=== PATIENT | male | born 1950 | race Caucasian/White ===

== ENCOUNTER 2024-03-11 10:52 | Inpatient (IN) | payer OTHER, MEDICARE ==
[~2024-03-11] VITALS: Ht 182.9 cm; Wt 115.8 kg
[2024-03-11] MEDS: SODIUM CHLORIDE 0.9% 1,000 ML IV ONE (11:15)
--- NOTE | 2024-03-11 11:37 | DVH ---
CHEST RADIOGRAPH Indication: HYPOTENSIVE Technique: Single frontal view of the chest was obtained Comparison: None FINDINGS: Lines and Tubes: None Lungs: No focal consolidation. Pleura: No effusion. No pneumothorax. Cardiomediastinal contours: Unremarkable Bones: No acute osseous abnormality. IMPRESSION: 1. No acute cardiopulmonary disease.
[2024-03-11 11:53] VITALS: PULSE 88; RESP 18; O2SAT 96
--- NOTE | 2024-03-11 12:00 | DVH ---
CT ABDOMEN AND PELVIS WITHOUT CONTRAST CLINICAL HISTORY: DIARRHEA, HYPOTENSIVE TECHNIQUE: Multiple contiguous axial images of the abdomen and pelvis without intravenous contrast. The images were reformatted degenerate coronal and sagittal reconstructions. All CT scans at this medical facility are performed using dose modulation techniques as appropriate t o a performed exam including the following:Automated exposure control was utilized; adjustment of the MA and/or KV according to patient size; and use of iterative reconstruction technique. Radiation Dose Information: CT Dose: CTDI volume is 23.17 mGy. Dose-length product is 1391.11 mGy*cm Comparison: None FINDINGS: Evaluation of the abdomen and pelvis is limited without intravenous contrast. There are right and left adrenal gland nodules measuring 1.9 cm and 1.8 cm respectively. The liver demonstrates decreased attenuation consistent with hepatic steatosis. There is no evidence of nephrolithiasis. There is mild bilateral hydronephrosis. There is also mild b ilateral hydroureter. There is no evidence of an obstructing calculus. There is a 4.2 cm right renal cysts. The gallbladder, pancreas, and spleen appear within normal limits. There is no gross evidence of abdominal lymphadenopathy. There is no free fluid or free air. The stomach grossly appears unremarkable. There are postsurgical changes related to near total colec ximena. There is a right lower abdomen ileostomy. There are no dilated small bowel loops. There is a broad neck midline ventral hernia with the neck measuring 6.4 cm in transverse diameter. The abdominal aorta and IVC appear within normal limits. The prostate gland is enlarged with central calcifications. The bladder demonstrates circumferential wall thickening which May relate to cystitis versus chronic outlet obstruction. There is no gross elidia dence of a pelvic mass. There is no free fluid collection. There is a small fat containing left ingui nal hernia. Lung bases are clear. There is no acute osseous abnormality. IMPRESSION: 1. There is mild bilateral hydronephrosis and hydroureter. There is no evidence of nephrolithiasis or obstructing ureteral calculus. 2. Prostatomegaly. 3. The bladder demonstrates circumferential wall thickening which May relate to cystitis versus chron ic outlet obstruction. 4. There are postsurgical changes related to near total colectomy. There is right lower abdomen ileos ximena. There is no evidence of small bowel obstruction. 5. Bilateral adrenal gland nodules likely adenomas. 6. Hepatic steatosis. 7. Broad neck midline ventral hernia. HS:Y
[2024-03-11 12:07] LABS: Urine Bacteria None Seen /hpf (None Seen)
[2024-03-11 12:27] LABS: Urine Blood 1+ /uL (Negative); Urine Clarity Ex.Turbid (Clear); Urine Color Yellow (Yellow); Urine Protein, UAD 2+ (Negative); Urine Specific Gravity 1.011 (1.001-1.035); Urine Urobilinogen Normal (Negative); Urine WBC 1876 /hpf (0 - 3); Urine WBC Clumps PRESENT /hpf (None Seen); Urine pH 5.5 (5.0-9.0)
[2024-03-11 12:27] LABS: Eosinophils # (auto) 0.1 10 ^3/uL (0-0.8); Eosinophils % (auto) 0.4 % (0.0-7.0); Monocytes # (auto) 1.3 10 ^3/uL (0-1.3)
[2024-03-11 12:29] LABS: Basophils # (auto) 0.1 10 ^3/uL (0-0.2); Basophils % (auto) 0.3 % (0.0-2.0); Hematocrit 40.9 % (41.0-53.0); Hemoglobin 13.1 g/dL (13.5-17.5); Lymphocytes # (auto) 1.9 10 ^3/uL (0.4-5.4); Lymphocytes % (auto) 8.4 % (10.0-50.0); Mean Corpuscular Volume 77.9 fL (80.0-100.0); Monocytes % (auto) 5.9 % (0.0-12.0); Neutrophils # (auto) 18.9 10 ^3/uL (1.6-8.6); Nucleated Red Blood Cells % 0.1 %; Platelet Count (auto) 294 10^3/uL (140-450); Red Blood Cells 5.25 10^6/uL (4.5-5.90); Red Cell Distribution Width 16.1 % (11.8-14.3); White Blood Cell 22.2 10^3/uL (4.4-10.8)
[2024-03-11 12:36] LABS: Chloride 101 mmol/L (98-107)
[2024-03-11 12:37] LABS: Anion Gap 15 (5-15)
--- NOTE | 2024-03-11 12:38 | ED.PDOC ---
General HPI Comments 74 y.o male with PMH of DM and HTN, presents to the ED for a chief complaint of reduced urine stream associated with diarrhea and fatigue x today . Patient reports having a colostomy bag in place s/p acute colitis diagnose, states he self catheterizes at home and noticed watery stool in his bag. Patient reports symptoms he is experiencing today are the same as previous UTI diagnoses. No fever, chills, sweats, abdominal pain, bloody stool, nausea or vomiting reported. Patient also mentions poor appetite x 2 days ago. Chief Complaint: Urinary Time Seen by MD: 11:02 Primary Care Provider: LUZ VANCE Reviewed notes: Nurses Notes, Medications, Allergies Information Source: Patient Mode of Arrival: Ambulatory Severity: Moderate Timing: Hours Duration: Since onset Onset: Spontaneous History of: UTI, Suprapubic catheter Penile discharge: None Modifying factors: None Past Medical History PAST MEDICAL HISTORY: DM, HTN, UTI'S Past Medical History (Other): Acute colitis and substance dependent Surgical History (Other): colostomy Family History Family History: Reviewed,noncontributory to illness Social History Smoker: Non-Smoker Alcohol: Denies ETOH Use Drugs: Denies Drug Use Lives In: Home Constitutional: reports: fatigue; denies: chills, diaphoresis, fever, malaise, sweats, weakness, others EENTM: denies: blurred vision, double vision, ear bleeding, ear discharge, ear drainage, ear pain, ear ringing, eye pain, eye redness, hearing loss, mouth pain, mouth swelling, nasal discharge, nose bleeding, nose congestion, nose pain, photophobia, tearing, throat pain, throat swelling, voice changes, others Respiratory: denies: cough, hemoptysis, orthopnea, SOB at rest, shortness of breath, SOB with excertion, stridor, wheezing, others Cardiovascular: denies: chest pain, dizzy spells, diaphoresis, Dyspnea on exertion, edema, irregular heart beat, left arm pain, lightheadedness, pa lpitations, PND, syncope, others Gastrointestinal: reports: diarrhea, poor appetite; denies: abdomen distended, abdominal pain, blood streaked bowels, constipated, dysphagia, difficulty swallo wing, hematemesis, melena, nausea, poor fluid intake, rectal bleeding, rectal pain, vomiting, others Genitourinary: reports: others (urinary stream decreased ); denies: burning, dysuria, flank pain, frequency, hematuria, incontinence, penile discharge, penile sore, pain, testicle pain, testicle swelling, urgency Neurological: denies: dizziness, fainting, headache, left sided numbness, left sided weakness, numbness, paresthesia, pre-existing deficit, right sided numbness, right sided weakness, seizure, speech problems, tingling, tremors, weakness, others Musculoskeletal: denies: back pain, gout, joint pain, joint swelling, muscle pain, muscle stiffness, neck pain, others Integumetry: denies: bruises, change in color, change in hair/nails, dryness, laceration, lesions, lumps, rash, wounds, others Allergic/Immunocompromised: denies: Difficulty Healing, Frequent Infections, Hives, Itching, others Hematologic/Lymphatic: denies: anemia, blood clots, easy bleeding, easy bruising, swollen glands, others Psychiatric: denies: anxiety, bipolar disorder, depression, hopeless, panic disorder, schizophrenia, sleepless, suicidal, others All Other Systems: Reviewed and Negative Physical Exam General Appearance: No Apparent Distress, Normal HEENT: Normal ENT Inspection, Pharynx Normal, TMs Normal Neck: Full Range of Motion, Non-Tender, Normal, Normal Inspection Respiratory: Chest Non-Tender, Lungs Clear, No Accessory Muscle Use, No Respiratory Distress, Normal Breath Sounds Cardiovascular: No Edema, No JVD, No Murmur, No Gallop, Normal Peripheral Pulses, Regular Rate/Rhythm Breast Exam: Deferred Gastrointestinal: Non Tender, Other (coloostomy bag filled with liquid like sto ol. ) Genitalia: Deferred Pelvic: Deferred Rectal: Deferred Extremities: No calf tenderness, Normal capillary refill, Normal inspection, Normal range of motion, Non-tender, No pedal edema Musculoskeletal : Apperance: Normal Neurologic: Alert, soft top installer II-XII nml as Tested, No Motor Deficits, Normal Affect, Normal Mood, No Sensory Deficits Cerebellar Function: Normal Reflexes: Normal Skin: Dry, Normal Color, Warm Lymphatic: No Adenopathy Was a procedure done? Was a procedure done?: No Differential Diagnosis Kidney stone (Female): Bowel obstruction, Cholelithiasis, Hepatitis, Pancreatitis, Pyelonephritis, Renal failure, Urinary obstruction, Urolithiasis, N/A Kidney stone (Male): Bowel obstruction, Cholelithiasis, Hepatitis, Cholangitis, Pancreatitis, Pyelonephritis, Renal failure, Urinary obstruction, Urolithiasis, Renal infarction, Urinary tract infection Penile/Scrotal: UTI, Urinary Retention Urinary Problem (Male): Bladder Outlet, Bladder Obstruction, Prostatitis, Plelonephritis, Renal Failure, Urinary Retention, Urolithiasis, UTI X-Ray, Labs, Meds, VS Vital Signs Date Time Temp Pulse Resp B/P (MAP) Pulse Ox O2 Delivery O2 Flow Rate FiO2 03/11/24 13:42 88 18 105/66 (79) 96 03/11/24 11:53 88 18 96 Room Air* 0 21 03/11/24 11:53 98.1 89 18 97/67 (77) 96 98.1 03/11/24 11:06 97.5 89 18 95/61 (72) 96 Lab Test 03/11/24 11:57 03/11/24 11:05 03/11/24 10:59 Range/Units White Blood Count 22.2 H 4.4-10.8 10^3/uL Red Blood Count 5.25 4.5-5.90 10^6/uL Hemoglobin 13.1 L 13.5-17.5 g/dL Hematocrit 40.9 L 41.0-53.0 % Mean Corpuscular Volume 77.9 L 80.0-100.0 fL Mean Corpuscular Hemoglobin 25.0 L 28.0-32.0 pg Mean Corpuscular Hemoglobin Concent 32.0 32.0-36.0 g/dL Red Cell Distribution Width 16.1 H 11.8-14.3 % Platelet Count 294 140-450 10^3/uL Mean Platelet Volume 8.7 6.9-10.8 fL Neutrophils (%) (Auto) 85.0 H 37.0-80.0 % Lymphocytes (%) (Auto) 8.4 L 10.0-50.0 % Monocytes (%) (Auto) 5.9 0.0-12.0 % Eosinophils (%) (Auto) 0.4 0.0-7.0 % Basophils (%) (Auto) 0.3 0.0-2.0 % Neutrophils # (Auto) 18.9 H 1.6-8.6 10 ^3/uL Lymphocytes # (Auto) 1.9 0.4-5.4 10 ^3/uL Monocytes # (Auto) 1.3 0-1.3 10 ^3/uL Eosinophils # (Auto) 0.1 0-0.8 10 ^3/uL Basophils # (Auto) 0.1 0-0.2 10 ^3/uL Nucleated Red Blood Cells 0.1 % Sodium Level 129 L 136-145 mmol/L Potassium Level 4.0 3.5-5.1 mmol/L Chloride Level 101 98-107 mmol/L Carbon Dioxide Level 13 L 20-31 mmol/L Anion Gap 15 5-15 Blood Urea Nitrogen 28 H 9-23 mg/dL Creatinine 4.06 H 0.700-1.30 mg/dL Glomerular Filtration Rate Calc 15 >90 mL/min BUN/Creatinine Ratio 6.9 L 10.0-20.0 Serum Glucose 161 H 74-106 mg/dL Calcium Level 10.0 8.7-10.4 mg/dL Troponin I High Sensitivity 8 </=54 ng/L Urine Color Yellow Yellow Urine Clarity Ex.turbid Clear Urine pH 5.5 5.0-9.0 Urine Specific [place] 1.011 1.001-1.035 Urine Protein 2+ H Negative Urine Ketones Negative Negative Urine Blood 1+ H Negative /uL Urine Nitrite Negative Negative Urine Bilirubin Negative Negative Urine Urobilinogen Normal Negative mg/dL Urine Leukocyte Esterase 3+ Negative /uL Urine RBC 13 0 - 3 /hpf Urine WBC 1876 0 - 3 /hpf Urine WBC Clumps Present None Seen /hpf Urine Squamous Epithelial Cells None seen <5 /hpf Urine Bacteria None seen None Seen /hpf Urine Glucose Normal Normal mg/dL POC Glucose 184 H 70-106 mg/dl Current Medications Medications (Trade) Dose Ordered Sig/Arnulfo Route Start Time Stop Time Status Last Admin Sodium Chloride 1,000 ml @ 1,000 mls/hr Q1H ONCE IV 03/11/24 11:15 03/11/24 12:14 DC 03/11/24 11:15 Time of 1ST Reevaluation: 12:38 Reevaluation 1ST: Unchanged Time of 2ND Reevaluation: 14:10 Reevaluation 2ND: Improved (cardiac rhythm-nsr) Time of 3RD Reevaluation: 14:24 Reevaluation 3RD: Improved (cardiac rhythm- nsr) Patient Education/Counseling: Diagnosis, Treatment, Prognosis Family Education/Counseling: No Family Present Additional Information Ordered Test: CBC, CMP, EKG, CXR, CT ABD/PEL WO CON Reviewed Result: LAB including troponin, UA Interpreted results: CXR and CT ABD/PEL WO CON- Agreed with radiology Discuss tx/ results: Patient and medical personnel CXR: IMPRESSION:1. No acute cardiopulmonary disease. CT ABD/PEL WO CONN: reviewed and agree with radiology IMPRESSION: 1. There is mild bilateral hydronephrosis and hydroureter. There is no evidence of nephrolithiasis or obstructing ureteral calculus. 2. Prostatomegaly. 3. The bladder demonstrates circumferential wall thickening which May relate to cystitis versus chronic outlet obstruction. 4. There are postsurgical changes related to near total colectomy. There is right lower abdomen ileostomy. There is no evidence of small bowel obstruction. 5. Bilateral adrenal gland nodules likely adenomas. 6. Hepatic steatosis. 7. Broad neck midline ventral hernia. pt reports that he has chronic renal insufficiency with cr around mid 1. he gets UTI's often and he self catheterizes. when he gets an UTI, his cr would climb up into 7. pt is feeling well now, but has elements of severe sepsis. he will need to be admitted Sepsis Sepsis Reasesment Focused Exam Sepsis focused exam: focus exam completed, time: (213) Departure 1 Departure Time of Disposition: 14:18 Impression: Primary Impression: UTI (urinary tract infection) Qualified Codes: N30.00 - Acute cystitis without hematuria Additional Impressions: Severe sepsis Renal failure Qualified Codes: N17.9 - Acute kidney failure, unspecified; N18.30 - Chronic kidney disease, stage 3 unspecified Disposition: ADMITTED INPATIENT Admit to: [facility] Condition: Serious Critical Care Note Critical Care Time?: Yes (45 min-critical care time only) Critical care comment: due to the likelihood of patients condition suddenly deteriorating, the care requires my highest level of attention, readiness to intervene. my critical care include assessing and reassessing of patient's condition, response to treatments, ordering the appropriate tests, reviewing the results, ordering of treatments, discussing the care with medical personnel and consultants, and formulating a treatment plan. this include at least 50% face-face interaction, and does not include any procedures Stability Stability form required: No I personally scribed for KEE JAUREGUI MD ([facility]) on 03/11/24 at 12:38. Electronically submitted by Erinn Banerjee ([facility]). I personally scribed for KEE JAUREGUI MD ([facility]) on 03/11/24 at 12:58. Electronically submitted by Erinn Banerjee ([facility]). KEE JAUREGUI MD Mar 11, 2024 12:38
[2024-03-11 12:41] LABS: Carbon Dioxide 13 mmol/L (20-31); Sodium 129 mmol/L (136-145)
[2024-03-11 12:42] LABS: BUN/Creatinine Ratio 6.9 (10.0-20.0)
[2024-03-11 12:51] LABS: Blood Urea Nitrogen 28 mg/dL (9-23); Glucose 161 mg/dL (74-106)
[2024-03-11] MEDS: SODIUM CHLORIDE 0.9% 2,350 ML IV ONE (14:15)
[2024-03-11] MEDS ORDERED: ACETAMINOPHEN 325 MG TAB PO PRN (14:30)
[2024-03-11] MEDS ORDERED: ONDANSETRON HCL 4 MG/2 ML VIAL IV PRN (14:30)
[2024-03-11] MEDS ORDERED: LORazepam 0.5 MG TAB PO PRN (14:30)
[2024-03-11] MEDS ORDERED: DEXTROSE (50%) 50ML SYRG IV PRN (14:30)
[2024-03-11] MEDS ORDERED: DOCUSATE SOD 100 MG CAP PO PRN (14:30)
[2024-03-11] MEDS ORDERED: MORPHINE SULFATE INJ 2 MG/ml SYRG IV PRN (14:30)
[2024-03-11] MEDS: SODIUM CHLORIDE 0.9% 1,000 ML IV SCH (14:30)
[2024-03-11] MEDS ORDERED: HYDROcodone-ACET 5/325MG TAB PO PRN (14:30)
[2024-03-11 14:40] LABS: Base Excess -9.9 mmol/L (-2.0-3.0)
--- NOTE | 2024-03-11 14:58 | DVHHP2 ---
History of Present Illness Reason for Visit: trouble urinating History of Present Illness 74-year-old obese patient with a past medical history of recurrent UTIs diabetes hypertension comes to the ED for evaluation and stating that he has the inability to properly urinate patient has been fatigued having problems with urination has had multiple UTIs in the past as of now has no acute signs of fevers patient does have a history of a colostomy bag due to acute colitis usually patient has to self-catheterize at home in order to properly urinate and even so has been having struggling ability to urinate and pass urine properly even with catheterization patient is of now states poor appetite weakness fatigue evaluated in the ED completing a CT scan and recommended for admission for further evaluation and management. Renal/: UTI Review of Systems Constitutional: Yes: Weakness; No: Fever, Chills, Sweats, Malaise, Other Eyes: No: Pain, Vision change, Conjunctivae inflammation, Eyelid inflammation, Other, Redness ENT: No: Ear pain, Ear discharge, Nose pain, Nose discharge, Nose congestion, Mouth pain, Mouth swelling, Throat pain, Throat swelling, Other Respiratory: No: Cough, Dry, Shortness of breath, SOB with excertion, Wheezing, Hemoptysis, Pleuritic Pain, Sputum, Wheezing, Other Cardiovascular: No: Chest Pain, Palpitations, Orthopnea, Paroxysmal Noc. Dyspnea, Edema, Lt Headedness, Other Gastrointestinal: No: Nausea, Vomiting, Abdominal Pain, Diarrhea, Constipation, Melena, Hematochezia, Other Genitourinary: No Dysuria, No Frequency; Incontinence; No Hematuria; Retention; No Other Musculoskeletal: No: other, neck pain, shoulder pain, arm pain, back pain, hand pain, leg pain, foot pain Skin: No: Rash, Lesions, Jaundice, Bruising, Other Neurological: No: Weakness, Numbness, Incoordination, Change in speech, Confusion, Seizures, Other Medications Current Medications Medications Dose Ordered Sig/Arnulfo Route Start Time Stop Time Status Last Admin Dose Admin Piperacillin Sod/ Tazobactam Sod 100 ml @ 25 mls/hr Q8HR IV 03/11/24 22:00 UNV Piperacillin Sod/ Tazobactam Sod 100 ml @ 100 mls/hr Q8HR IV 03/11/24 22:00 UNV Diagnostic Test (Pha) 1 strip IQ4HR 03/11/24 16:00 UNV Insulin Human Regular IQ4HR SC 03/11/24 16:00 UNV Dextrose 50 ml UD PRN IV 03/11/24 14:30 UNV Sodium Chloride 1,000 ml @ 100 mls/hr Q10H IV 03/11/24 14:30 UNV Lorazepam 0.5 mg Q6HP PRN PO 03/11/24 14:30 UNV Al Hydrox/Mg Hydrox/Simethicone 30 ml Q6HP PRN PO 03/11/24 14:30 UNV Docusate Sodium 100 mg BIDPRN PRN PO 03/11/24 14:30 UNV Acetaminophen 650 mg Q6HP PRN PO 03/11/24 14:30 UNV Acetaminophen/ Hydrocodone Bitart 1 tab Q4HP PRN PO 03/11/24 14:30 UNV Ondansetron HCl 4 mg Q4HP PRN IV 03/11/24 14:30 UNV Morphine Sulfate 1 mg Q4HPRN PRN IV 03/11/24 14:30 UNV Exam Vital Signs Vital Signs Date Time Temp Pulse Resp B/P (MAP) Pulse Ox O2 Delivery O2 Flow Rate FiO2 03/11/24 13:42 88 18 105/66 (79) 96 03/11/24 11:53 Room Air* 0 21 03/11/24 11:53 98.1 98.1 General Appearance: Alert, Oriented X3, mild distress HEENT: Atraumatic, PERRLA Respiratory: Clear to auscultation, Normal air movement Cardiovascular: Regular rate, Normal S1 Abdominal: Normal bowel sounds, Soft Extremities: No clubbing, No cyanosis Skin: No rashes Neuro: Normal gait, Normal speech Psych/Mental Status: Mood NL Labs/Xrays Labs Test 03/11/24 14:35 03/11/24 14:17 03/11/24 11:57 03/11/24 11:05 Range/Units Blood Gas Specimen Type Arterial Blood Gas Sample Site Right radial Blood Gas Patient Temperature 37.0 Arterial Blood Date Drawn [id number] Arterial Blood pH 7.328 L 7.350-7.450 Arterial Blood Partial Pressure CO2 28.3 L 35.0-48.0 mmHg Arterial Blood Partial Pressure O2 77.5 L 83.0-108.0 mmHg Arterial Blood HCO3 14.5 L 21.0-28.0 mmol/L Arterial Blood Oxygen Saturation 94.6 94.0-98.0 % Arterial Blood Base Excess -9.9 L -2.0-3.0 mmol/L Arterial Blood Oxyhemoglobin 93.4 L 94.0-98.0 % Arterial Blood Carboxyhemoglobin 0.7 0.5-1.5 % Arterial Blood Methemoglobin 0.6 0.0-1.5 % Nishant Test Yes Blood Gas Total Hemoglobin 13.40 L 13.5-17.5 g/dL Blood Gas Modality Room air FiO2 % 21.0 White Blood Count 22.2 H 4.4-10.8 10^3/uL Red Blood Count 5.25 4.5-5.90 10^6/uL Hemoglobin 13.1 L 13.5-17.5 g/dL Hematocrit 40.9 L 41.0-53.0 % Mean Corpuscular Volume 77.9 L 80.0-100.0 fL Mean Corpuscular Hemoglobin 25.0 L 28.0-32.0 pg Mean Corpuscular Hemoglobin Concent 32.0 32.0-36.0 g/dL Red Cell Distribution Width 16.1 H 11.8-14.3 % Platelet Count 294 140-450 10^3/uL Mean Platelet Volume 8.7 6.9-10.8 fL Neutrophils (%) (Auto) 85.0 H 37.0-80.0 % Lymphocytes (%) (Auto) 8.4 L 10.0-50.0 % Monocytes (%) (Auto) 5.9 0.0-12.0 % Eosinophils (%) (Auto) 0.4 0.0-7.0 % Basophils (%) (Auto) 0.3 0.0-2.0 % Neutrophils # (Auto) 18.9 H 1.6-8.6 10 ^3/uL Lymphocytes # (Auto) 1.9 0.4-5.4 10 ^3/uL Monocytes # (Auto) 1.3 0-1.3 10 ^3/uL Eosinophils # (Auto) 0.1 0-0.8 10 ^3/uL Basophils # (Auto) 0.1 0-0.2 10 ^3/uL Nucleated Red Blood Cells 0.1 % Sodium Level 129 L 136-145 mmol/L Potassium Level 4.0 3.5-5.1 mmol/L Chloride Level 101 98-107 mmol/L Carbon Dioxide Level 13 L 20-31 mmol/L Anion Gap 15 5-15 Blood Urea Nitrogen 28 H 9-23 mg/dL Creatinine 4.06 H 0.700-1.30 mg/dL Glomerular Filtration Rate Calc 15 >90 mL/min BUN/Creatinine Ratio 6.9 L 10.0-20.0 Serum Glucose 161 H 74-106 mg/dL Calcium Level 10.0 8.7-10.4 mg/dL Troponin I High Sensitivity 8 </=54 ng/L Urine Color Yellow Yellow Urine Clarity Ex.turbid Clear Urine pH 5.5 5.0-9.0 Urine Specific [place] 1.011 1.001-1.035 Urine Protein 2+ H Negative Urine Ketones Negative Negative Urine Blood 1+ H Negative /uL Urine Nitrite Negative Negative Urine Bilirubin Negative Negative Urine Urobilinogen Normal Negative mg/dL Urine Leukocyte Esterase 3+ Negative /uL Urine RBC 13 0 - 3 /hpf Urine WBC 1876 0 - 3 /hpf Urine WBC Clumps Present None Seen /hpf Urine Squamous Epithelial Cells None seen <5 /hpf Urine Bacteria None seen None Seen /hpf Urine Glucose Normal Normal mg/dL Test 03/11/24 10:59 Range/Units POC Glucose 184 H 70-106 mg/dl Assessment/Plan Assessment/Plan Admit to [facility] [place] Acute urinary tract infection With suspected pyelonephritis Patient with bilateral hydronephrosis noted on CT scan Patient with poor urinary output Stearns inserted in the ED to manage patient's urinary flow Patient with large prostate confirmed on CT scan Urology consult possible TURP procedure required IV antibiotics for infection [place] [address] Urine turbid elevated white count elevated leukocyte count Urine culture medication adjustment is required IV antibiotics with Zosyn started in the ED we will continue IV hydration ANTHONY noted Stearns with urinary output to be measured History of diabetes Uncontrolled Hyperglycemia noted Insulin sliding scale moderate Plan discussed with: Patient My Orders Orders - MATT BOLTON MD Procedure Category Date Status Time Piperacillin-Tazob PHA 03/11/24 Logged 3.375gm (Zosyn 3.375g 22:00 Glucose Blood PHA 03/11/24 Logged (Accu-Chek Comfort 16:00 Insulin R (Human) PHA 03/11/24 Logged (Insulin R) 16:00 Dextrose 50% Syringe PHA 03/11/24 Logged 14:30 Admit ADMIT 03/11/24 Transmitted 14:29 Code Status CODE 03/11/24 Transmitted 14:29 Vital Signs [facility] 03/11/24 In Process 14:29 Review Orders With [facility] 03/11/24 In Process Adm.Md 14:29 Consistent DIET 03/11/24 Transmitted Carb(Ccho)Diabetes Dinner Sodium Chloride 0.9% PHA 03/11/24 Logged 14:30 Lorazepam Tablet PHA 03/11/24 Logged (Ativan Tablet) 14:30 Alum & Mag PHA 03/11/24 Logged Hydrox-Simethicone 14:30 Docusate Sodium PHA 03/11/24 Logged Capsule (Colace 14:30 Acetaminophen Tablet PHA 03/11/24 Logged (Tylenol Tablet) 14:30 Notify Md Of Changes [facility] 03/11/24 In Process From Base 14:29 Advance Directive [facility] 03/11/24 In Process 14:29 Basic Metabolic Panel LAB 03/12/24 Verified 04:00 Complete Blood Count LAB 03/12/24 Verified 04:00 Urine Bacterial VISHAL 03/11/24 In Process Culture 14:29 Patient Condition ORDERS 03/11/24 Transmitted 14:29 Allergies [facility] 03/11/24 In Process 14:29 Hydrocodone-Acet PHA 03/11/24 Logged 5/325mg Tab (Vulcan 14:30 Ondansetron Hcl PHA 03/11/24 Logged (Zofran) 14:30 Morphine Sulfate PHA 03/11/24 Logged Injection 14:30 Notify Md Of Changes [facility] 03/11/24 In Process From Base 14:29 Oxygen By Nasal RT 03/11/24 Transmitted Cannula 14:29 * Gu Consult CONS 03/11/24 Transmitted 14:46 Insert Stearns Catheter [facility] 03/11/24 In Process 14:47 Problem List: (1) UTI (urinary tract infection) (2) Severe sepsis (3) Renal failure Date of Service: Mar 11, 2024 Billing Provider: MATT BOLTON MD Common Visit Codes: [id number] INP/OBS CARE (HIGH) MATT BOLTON MD Mar 11, 2024 14:58
[2024-03-11] MEDS: PIPERACILLIN-TAZO 4.5GM 100 ML IV ONE (15:26)
[2024-03-11] MEDS: InsuLIN REG 1unit/0.01ml Soln (100units/ml) SC SCH (16:00)
[2024-03-11] MEDS: ACCU-CHEK COMFORT CURVE STRIP VI SCH (16:20)
[2024-03-11 16:53] VITALS: BP 128/79; PULSE 86; RESP 18; TEMP 97.4; O2SAT 97
[2024-03-11 17:44] VITALS: BP 128/79; PULSE 86; RESP 18; TEMP 97.4; O2SAT 97
[2024-03-11] MEDS ORDERED: LIDO5PAD12 TOP (18:07)
[2024-03-11] MEDS ORDERED: SIL25T PO (18:07)
[2024-03-11] MEDS ORDERED: LEVO150T10 PO (18:07)
[2024-03-11] MEDS ORDERED: LACT12CR17 TOP (18:07)
[2024-03-11] MEDS ORDERED: INS7030I SC ×2 (18:07)
[2024-03-11] MEDS ORDERED: NAPHDRO11 OP (18:07)
[2024-03-11] MEDS ORDERED: AMLO1TAB22 PO (18:07)
[2024-03-11] MEDS ORDERED: DOXE25CA2 PO (18:07)
[2024-03-11] MEDS ORDERED: FAMO20TA10 PO (18:07)
[2024-03-11 21:00] VITALS: BP 125/68; PULSE 80; RESP 18; TEMP 98.6; O2SAT 98
[2024-03-11] MEDS: PIPERACILLIN-TAZOB 3.375GM 100 ML IV SCH (23:17)
[2024-03-11] MEDS: MAALOX PLUS or MAALOX 30 ML PO PRN (23:23)
[2024-03-12] VITALS (7 sets, daily range): BP systolic 117–152; BP diastolic 69–77; PULSE 67–92; RESP 18–20; TEMP 97.9–98.4; O2SAT 93–98
[2024-03-12 06:09] LABS: Eosinophils # (auto) 0.2 10 ^3/uL (0-0.8); Monocytes # (auto) 0.9 10 ^3/uL (0-1.3)
[2024-03-12 06:13] LABS: Basophils # (auto) 0 10 ^3/uL (0-0.2); Basophils % (auto) 0.2 % (0.0-2.0); Eosinophils % (auto) 1.3 % (0.0-7.0); Hemoglobin 12.4 g/dL (13.5-17.5); Lymphocytes # (auto) 1.8 10 ^3/uL (0.4-5.4); Lymphocytes % (auto) 12.6 % (10.0-50.0); Mean Corpuscular Hemoglobin 24.8 pg (28.0-32.0); Mean Corpuscular Hgb Conc. 32.6 g/dL (32.0-36.0); Monocytes % (auto) 6.3 % (0.0-12.0); Neutrophils # (auto) 11.1 10 ^3/uL (1.6-8.6); Neutrophils % (auto) 79.6 % (37.0-80.0); Platelet Count (auto) 278 10^3/uL (140-450)
[2024-03-12 06:25] LABS: Chloride 106 mmol/L (98-107); Sodium 137 mmol/L (136-145)
[2024-03-12 06:26] LABS: Anion Gap 15 (5-15); Calcium 9.6 mg/dL (8.7-10.4)
[2024-03-12 06:31] LABS: BUN/Creatinine Ratio 13.5 (10.0-20.0)
[2024-03-12 06:36] LABS: Blood Urea Nitrogen 37 mg/dL (9-23); Carbon Dioxide 16 mmol/L (20-31); Glucose 113 mg/dL (74-106); Potassium 3.4 mmol/L (3.5-5.1)
--- NOTE | 2024-03-12 17:30 | DVHINCON2 ---
Date of service: Mar 12, 2024 Referring Physician Hospitalist Reason for Consultation Urinary retention BPH Hydronephrosis History of Present Illness 74 y.o male with PMH of DM and HTN, presents to the ED for a chief complaint of reduced urine stream associated with diarrhea and fatigue x today . Patient reports having a colostomy bag in place s/p acute colitis diagnose, states he self catheterizes at home and noticed watery stool in his bag. Patient reports symptoms he is experiencing today are the same as previous UTI diagnoses. No fever, chills, sweats, abdominal pain, bloody stool, nausea or vomiting reported. Patient also mentions poor appetite x 2 days ago. Chief Complaint: Urinary Primary Care Provider: LUZ VANCE Reviewed notes: Nurses Notes, Medications, Allergies Information Source: Patient Mode of Arrival: Ambulatory Severity: Moderate Timing: Hours Duration: Since onset Onset: Spontaneous History of: UTI, Suprapubic catheter Penile discharge: None Modifying factors: None Past Medical History DM, HTN, UTI'S, BPH and neurogenic bladder Past Medical History (Other): Ulcerative colitis and substance dependent Past Surgical History Total colectomy with ileostomy Family History: FH: COPD (chronic obstructive pulmonary disease) G8 MOTHER Allergies: Coded Allergies: NO KNOWN ALLERGIES (Unverified , 03/11/24) Home Meds Reported Medications Sildenafil Citrate (Viagra) 25 Mg Tab, 25 MG PO PRN PRN for sexual activity, TAB 03/11/24 Naphazoline-Polyethylene Glyco (Eye Drops) Reji, 1 DROP OP QID PRN for DRY EYES, DROP 03/11/24 Lactic Acid (Ammonium Lactate) 12 % Cre, 12 % TOP PRN PRN for FOR ITCHING, CRE 03/11/24 Famotidine (PEPCID TABLET) 20 Mg Tb, 40 MG PO HS, TAB 03/11/24 Amlodipine Besylate (Amlodipine Besylate) 5 Mg Tab, 10 MG PO DAILY for 30 Days, MG 03/11/24 Levothyroxine Sodium (Levothyroxine Sodium) 150 Mcg Tab, 150 MCG PO QAM for 30 Days 03/11/24 Insulin Isophane & Reg (Human) (Humulin 70/30 (70-30) 100 Unit/ml) 1 Units/0.01 Ml Inj, 25 UNITS SC HS, INJ 03/11/24 Insulin Isophane & Reg (Human) (Humulin 70/30 (70-30) 100 Unit/ml) 1 Units/0.01 Ml Inj, 35 UNITS SC DAILY, INJ 03/11/24 Lidocaine (Lidocaine Patch 5%) 5 % Pad, 5 % TOP PRN PRN for PAIN SCALE 7 THRU 10, PAD 03/11/24 Doxepin Hcl (Doxepin Hcl) 25 Mg Cap, 225 MG PO HS PRN for ., CAP 03/11/24 Current Medications Current Medications Medications (Trade) Dose Ordered Sig/Arnulfo Route PRN Reason Start Time Stop Time Status Last Admin Piperacillin Sod/ Tazobactam Sod 100 ml @ 100 mls/hr Q8HR IV 03/11/24 22:00 03/12/24 13:47 Review of Systems Constitutional: reports: fatigue; denies: chills, diaphoresis, fever, malaise, sweats, weakness, others EENTM: denies: blurred vision, double vision, ear bleeding, ear discharge, ear drainage, ear pain, ear ringing, eye pain, eye redness, hearing loss, mouth pain, mouth swelling, nasal discharge, nose bleeding, nose congestion, nose pain, photophobia, tearing, throat pain, throat swelling, voice changes, others Respiratory: denies: cough, hemoptysis, orthopnea, SOB at rest, shortness of breath, SOB with excertion, stridor, wheezing, others Cardiovascular: denies: chest pain, dizzy spells, diaphoresis, Dyspnea on exertion, edema, irregular heart beat, left arm pain, lightheadedness, palpitations, PND, syncope, others Gastrointestinal: reports: diarrhea, poor appetite; denies: abdomen distended, abdominal pain, blood streaked bowels, constipated, dysphagia, difficulty swallowing, hematemesis, melena, nausea, poor fluid intake, rectal bleeding, rectal pain, vomiting, others Genitourinary: reports: others (urinary stream decreased ); denies: burning, dysuria, flank pain, frequency, hematuria, incontinence, penile discharge, penile sore, pain, testicle pain, testicle swelling, urgency Neurological: denies: dizziness, fainting, headache, left sided numbness, left sided weakness, numbness, paresthesia, pre-existing deficit, right sided numbness, right sided weakness, seizure, speech problems, tingling, tremors, weakness, others Musculoskeletal: denies: back pain, gout, joint pain, joint swelling, muscle pain, muscle stiffness, neck pain, others Integumetry: denies: bruises, change in color, change in hair/nails, dryness, laceration, lesions, lumps, rash, wounds, others Allergic/Immunocompromised: denies: Difficulty Healing, Frequent Infections, Hives, Itching, others Hematologic/Lymphatic: denies: anemia, blood clots, easy bleeding, easy bruising, swollen glands, others Psychiatric: denies: anxiety, bipolar disorder, depression, hopeless, panic disorder, schizophrenia, sleepless, suicidal, others All Other Systems: Reviewed and Negative Vital Signs Vital Signs Date Time Temp Pulse Resp B/P (MAP) Pulse Ox O2 Delivery O2 Flow Rate FiO2 03/12/24 13:00 98.2 92 20 117/77 (90) 96 98.2 03/12/24 07:30 Room Air* 0 21 Physical Exam General Appearance: No Apparent Distress, Normal HEENT: Normal ENT Inspection, Pharynx Normal, TMs Normal Neck: Full Range of Motion, Non-Tender, Normal, Normal Inspection Respiratory: Chest Non-Tender, Lungs Clear, No Accessory Muscle Use, No Respiratory Distress, Normal Breath Sounds Cardiovascular: No Edema, No JVD, No Murmur, No Gallop, Normal Peripheral Pulses, Regular Rate/Rhythm Breast Exam: Deferred Gastrointestinal: Non Tender, Other (coloostomy bag filled with liquid like stool. ) Genitalia: Stearns catheter in place Extremities: No calf tenderness, Normal capillary refill, Normal inspection, Normal range of motion, Non-tender, No pedal edema Musculoskeletal : Apperance: Normal Neurologic: Alert, equity holder II-XII nml as Tested, No Motor Deficits, Normal Affect, Normal Mood, No Sensory Deficits Cerebellar Function: Normal Reflexes: Normal Skin: Dry, Normal Color, Warm Lymphatic: No Adenopathy Labs/Diagnostic Data Labs Test 03/12/24 11:36 03/12/24 05:12 03/11/24 18:06 03/11/24 14:35 Range/Units POC Glucose 234 H 70-106 mg/dl White Blood Count 14.0 #H 4.4-10.8 10^3/uL Red Blood Count 5.00 4.5-5.90 10^6/uL Hemoglobin 12.4 L 13.5-17.5 g/dL Hematocrit 38.0 L 41.0-53.0 % Mean Corpuscular Volume 76.0 L 80.0-100.0 fL Mean Corpuscular Hemoglobin 24.8 L 28.0-32.0 pg Mean Corpuscular Hemoglobin Concent 32.6 32.0-36.0 g/dL Red Cell Distribution Width 16.0 H 11.8-14.3 % Platelet Count 278 140-450 10^3/uL Mean Platelet Volume 8.9 6.9-10.8 fL Neutrophils (%) (Auto) 79.6 37.0-80.0 % Lymphocytes (%) (Auto) 12.6 10.0-50.0 % Monocytes (%) (Auto) 6.3 0.0-12.0 % Eosinophils (%) (Auto) 1.3 0.0-7.0 % Basophils (%) (Auto) 0.2 0.0-2.0 % Neutrophils # (Auto) 11.1 H 1.6-8.6 10 ^3/uL Lymphocytes # (Auto) 1.8 0.4-5.4 10 ^3/uL Monocytes # (Auto) 0.9 0-1.3 10 ^3/uL Eosinophils # (Auto) 0.2 0-0.8 10 ^3/uL Basophils # (Auto) 0 0-0.2 10 ^3/uL Nucleated Red Blood Cells 0.0 % Sodium Level 137 # 136-145 mmol/L Potassium Level 3.4 L 3.5-5.1 mmol/L Chloride Level 106 98-107 mmol/L Carbon Dioxide Level 16 L 20-31 mmol/L Anion Gap 15 5-15 Blood Urea Nitrogen 37 H 9-23 mg/dL Creatinine 2.74 H 0.700-1.30 mg/dL Glomerular Filtration Rate Calc 24 >90 mL/min BUN/Creatinine Ratio 13.5 10.0-20.0 Serum Glucose 113 H 74-106 mg/dL Calcium Level 9.6 8.7-10.4 mg/dL Lactic Acid Level 0.8 0.4-2.0 mmol/L Blood Gas Specimen Type Arterial Blood Gas Sample Site Right radial Blood Gas Patient Temperature 37.0 Arterial Blood Date Drawn [id number] Arterial Blood pH 7.328 L 7.350-7.450 Arterial Blood Partial Pressure CO2 28.3 L 35.0-48.0 mmHg Arterial Blood Partial Pressure O2 77.5 L 83.0-108.0 mmHg Arterial Blood HCO3 14.5 L 21.0-28.0 mmol/L Arterial Blood Oxygen Saturation 94.6 94.0-98.0 % Arterial Blood Base Excess -9.9 L -2.0-3.0 mmol/L Arterial Blood Oxyhemoglobin 93.4 L 94.0-98.0 % Arterial Blood Carboxyhemoglobin 0.7 0.5-1.5 % Arterial Blood Methemoglobin 0.6 0.0-1.5 % Nishant Test Yes Blood Gas Total Hemoglobin 13.40 L 13.5-17.5 g/dL Blood Gas Modality Room air FiO2 % 21.0 Test 03/11/24 11:57 03/11/24 11:05 Range/Units Troponin I High Sensitivity 8 </=54 ng/L Urine Color Yellow Yellow Urine Clarity Ex.turbid Clear Urine pH 5.5 5.0-9.0 Urine Specific [place] 1.011 1.001-1.035 Urine Protein 2+ H Negative Urine Ketones Negative Negative Urine Blood 1+ H Negative /uL Urine Nitrite Negative Negative Urine Bilirubin Negative Negative Urine Urobilinogen Normal Negative mg/dL Urine Leukocyte Esterase 3+ Negative /uL Urine RBC 13 0 - 3 /hpf Urine WBC 1876 0 - 3 /hpf Urine WBC Clumps Present None Seen /hpf Urine Squamous Epithelial Cells None seen <5 /hpf Urine Bacteria None seen None Seen /hpf Urine Glucose Normal Normal mg/dL Microbiology Date/Time Source Procedure Growth Status 03/12/24 02:19 Nose MRSA Screen - Final Complete 03/11/24 14:22 Blood Blood Culture - Preliminary NO GROWTH AFTER 24 HOURS OF INCUBATION. Resulted 03/11/24 11:05 Urine - Catheterized Urine Culture - Preliminary Resulted Assessment BPH Neurogenic bladder Chronic kidney disease Status post colectomy and ileostomy Plan/Recommendation Patient has previously been recommended to undergo a TURP by the [place] urology service. I recommend that he be discharged with an indwelling catheter with plans for monthly changes until he undergoes a TURP Plan discussed with: Patient NATALIE VELASCO MD Mar 12, 2024 17:30
[2024-03-13] VITALS (7 sets, daily range): BP systolic 123–161; BP diastolic 63–82; PULSE 71–87; RESP 18–20; TEMP 97.3–98.6; O2SAT 93–96
--- NOTE | 2024-03-13 12:55 | DVHPN2 ---
Reviewed: Care Plan, H&P, Labs, Medications, Previous Orders, Radiology Changes from previous H/P or p: No Changes Eyes: No Pain, No Vision change, No Conjunctivae inflammation, No Eyelid inflammation, No Other, No Redness ENT: No Ear pain, No Ear discharge, No Nose pain, No Nose discharge, No Nose congestion, No Mouth pain, No Mouth swelling, No Throat pain, No Throat swelling, No Other Cardiovascular: No Chest Pain, No Palpitations, No Orthopnea, No Paroxysmal Noc. Dyspnea, No Edema, No Lt Headedness, No Other Respiratory: No Cough, No Dry, No Shortness of breath, No SOB with excertion, No Wheezing, No Hemoptysis, No Pleuritic Pain, No Sputum, No Other Gastrointestinal: No Nausea, No Vomiting, No Abdominal Pain, No Diarrhea, No Constipation, No Melena, No Hematochezia, No Other Genitourinary: No Dysuria, No Frequency; Incontinence; No Hematuria; Retention; No Other Musculoskeletal: No other, No neck pain, No shoulder pain, No arm pain, No back pain, No hand pain, No leg pain, No foot pain Skin: No Rash, No Lesions, No Jaundice, No Bruising, No Other Objective Vitals Vital Signs Date Time Temp Pulse Resp B/P (MAP) Pulse Ox O2 Delivery O2 Flow Rate FiO2 03/13/24 09:00 98.0 87 20 157/82 (107) 93 98.0 03/13/24 08:00 Room Air* 0 21 Intake/Output Intake and Output 03/13/24 07:00 Intake Total 5252 ml Output Total 5350 ml Balance -98 ml Intake Oral 4152 ml IV Total 1100 ml Output Urine Total 5350 ml Medications Current Medications Medications Dose Ordered Sig/Arnulfo Route Start Time Stop Time Status Last Admin Dose Admin Piperacillin Sod/ Tazobactam Sod 100 ml @ 100 mls/hr Q8HR IV 03/11/24 22:00 03/13/24 05:10 100 MLS/HR Diagnostic Test (Pha) 1 strip IQ4HR 03/11/24 16:00 03/13/24 08:24 1 STRIP Insulin Human Regular IQ4HR SC 03/11/24 16:00 03/13/24 08:23 2 UNITS Dextrose 50 ml UD PRN IV 03/11/24 14:30 Sodium Chloride 1,000 ml @ 100 mls/hr Q10H IV 03/11/24 14:30 03/12/24 09:10 100 MLS/HR Lorazepam 0.5 mg Q6HP PRN PO 03/11/24 14:30 Al Hydrox/Mg Hydrox/Simethicone 30 ml Q6HP PRN PO 03/11/24 14:30 03/12/24 21:00 30 ML Docusate Sodium 100 mg BIDPRN PRN PO 03/11/24 14:30 Acetaminophen 650 mg Q6HP PRN PO 03/11/24 14:30 Acetaminophen/ Hydrocodone Bitart 1 tab Q4HP PRN PO 03/11/24 14:30 Ondansetron HCl 4 mg Q4HP PRN IV 03/11/24 14:30 Morphine Sulfate 1 mg Q4HPRN PRN IV 03/11/24 14:30 Laboratory Results Laboratory Tests 03/12/24 05:12 Urinalysis Test 03/11/24 11:05 Urine Color Yellow (Yellow) Urine Clarity Ex.turbid (Clear) Urine pH 5.5 (5.0-9.0) Urine Specific [place] 1.011 (1.001-1.035) Urine Protein 2+ (Negative) H Urine Ketones Negative (Negative) Urine Blood 1+ /uL (Negative) H Urine Nitrite Negative (Negative) Urine Bilirubin Negative (Negative) Urine Urobilinogen Normal mg/dL (Negative) Urine Leukocyte Esterase 3+ /uL (Negative) Urine RBC 13 /hpf (0 - 3) Urine WBC 1876 /hpf (0 - 3) Urine WBC Clumps Present /hpf (None Seen) Urine Squamous Epithelial Cells None seen /hpf (<5) Urine Bacteria None seen /hpf (None Seen) Urine Glucose Normal mg/dL (Normal) Microbiology Microbiology Date/Time Source Procedure Growth Status 03/12/24 02:19 Nose MRSA Screen - Final Complete 03/11/24 14:22 Blood Blood Culture - Preliminary NO GROWTH AFTER 24 HOURS OF INCUBATION. Resulted 03/11/24 11:05 Urine - Catheterized Urine Culture - Final Citrobacter koseri Complete Labs and/or images reviewed: Labs reviewed by me, Image(s) reviewed by me Assessment/Plan Assessment/Plan Sepsis secondary to acute urinary tract infection WBC 22 K: Urine cultures growing Citrobacter: DC Zosyn start Rocephin BPH: Urology consult by Dr. Rashmi appreciated, recommended indwelling Stearns catheterization until patient's gets TURP, was previously advised by [place] urologist for TURP Neurogenic bladder Chronic kidney disease Status post colectomy and ileostomy Diabetes Hypertension Recurrent UTI Time spent 65 minutes Patient is full code Condition guarded Advanced care planning time 20 minutes Plan discussed with: Patient Date of Service: Mar 13, 2024 Billing Provider: JENNIFER AVITIA MD Common Visit Codes: [id number] CARE 30-74 MIN JENNIFER AVITIA MD Mar 13, 2024 12:55
[2024-03-13] MEDS: cefTRIAXone 1GM/50ML D5W 50 ML IV ONE (13:23)
[2024-03-13] MEDS: SERTRALINE HCL 50 MG TAB PO SCH (21:13)
[2024-03-13] MEDS: PANTOPRAZOLE 40 MG/10 ML VIAL INJ IV SCH (21:13)
[2024-03-14] VITALS (7 sets, daily range): BP systolic 131–183; BP diastolic 74–90; PULSE 65–89; RESP 17–18; TEMP 97.5–98; O2SAT 93–96
[2024-03-14] MEDS: LEVOTHYROXINE SODIUM 112 MCG TAB PO SCH (06:00)
[2024-03-14] MEDS: LEVOTHYROXINE SODIUM 25 MCG TAB PO SCH (06:00)
[2024-03-14 06:38] LABS: Alanine Aminotransferase 17 U/L (7-40); Albumin 4.3 g/dL (3.2-4.8); Alkaline Phosphatase 93 U/L (46-116); Anion Gap 14 (5-15); Aspartate Aminotransferase 13 U/L (13-40); BUN/Creatinine Ratio 11.9 (10.0-20.0); Bilirubin, Total 0.3 mg/dL (0.2-1.0); Blood Urea Nitrogen 17 mg/dL (9-23); Calcium 9.5 mg/dL (8.7-10.4); Sodium 140 mmol/L (136-145); Total Protein 7.1 g/dL (5.7-8.2)
[2024-03-14 06:39] LABS: Carbon Dioxide 18 mmol/L (20-31); Chloride 108 mmol/L (98-107); Glucose 123 mg/dL (74-106); Potassium 3.4 mmol/L (3.5-5.1)
[2024-03-14] MEDS: cefTRIAXone 1GM/50ML D5W 50 ML IV SCH (08:02)
--- NOTE | 2024-03-14 09:21 | DVHPN2 ---
Reviewed: Care Plan, H&P, Labs, Medications, Previous Orders, Radiology Changes from previous H/P or p: No Changes Eyes: No Pain, No Vision change, No Conjunctivae inflammation, No Eyelid inflammation, No Other, No Redness ENT: No Ear pain, No Ear discharge, No Nose pain, No Nose discharge, No Nose congestion, No Mouth pain, No Mouth swelling, No Throat pain, No Throat swelling, No Other Cardiovascular: No Chest Pain, No Palpitations, No Orthopnea, No Paroxysmal Noc. Dyspnea, No Edema, No Lt Headedness, No Other Respiratory: No Cough, No Dry, No Shortness of breath, No SOB with excertion, No Wheezing, No Hemoptysis, No Pleuritic Pain, No Sputum, No Other Gastrointestinal: No Nausea, No Vomiting, No Abdominal Pain, No Diarrhea, No Constipation, No Melena, No Hematochezia, No Other Genitourinary: No Dysuria, No Frequency; Incontinence; No Hematuria; Retention; No Other Musculoskeletal: No other, No neck pain, No shoulder pain, No arm pain, No back pain, No hand pain, No leg pain, No foot pain Skin: No Rash, No Lesions, No Jaundice, No Bruising, No Other Objective Vitals Vital Signs Date Time Temp Pulse Resp B/P (MAP) Pulse Ox O2 Delivery O2 Flow Rate FiO2 03/14/24 08:00 Room Air* 0 21 03/14/24 05:00 97.9 89 18 141/74 (96) 96 97.9 Intake/Output Intake and Output 03/14/24 07:00 Intake Total 3040 ml Output Total 2800 ml Balance 240 ml Intake Oral 2440 ml IV Total 600 ml Output Urine Total 2800 ml Medications Current Medications Medications Dose Ordered Sig/Arnulfo Route Start Time Stop Time Status Last Admin Dose Admin Diagnostic Test (Pha) 1 strip IQ4HR 03/11/24 16:00 03/14/24 08:00 1 STRIP Insulin Human Regular IQ4HR SC 03/11/24 16:00 03/14/24 08:02 6 UNITS Dextrose 50 ml UD PRN IV 03/11/24 14:30 Sodium Chloride 1,000 ml @ 100 mls/hr Q10H IV 03/11/24 14:30 03/14/24 02:23 100 MLS/HR Lorazepam 0.5 mg Q6HP PRN PO 03/11/24 14:30 Al Hydrox/Mg Hydrox/Simethicone 30 ml Q6HP PRN PO 03/11/24 14:30 03/12/24 21:00 30 ML Docusate Sodium 100 mg BIDPRN PRN PO 03/11/24 14:30 Acetaminophen 650 mg Q6HP PRN PO 03/11/24 14:30 Acetaminophen/ Hydrocodone Bitart 1 tab Q4HP PRN PO 03/11/24 14:30 Ondansetron HCl 4 mg Q4HP PRN IV 03/11/24 14:30 Morphine Sulfate 1 mg Q4HPRN PRN IV 03/11/24 14:30 Ceftriaxone Sodium 50 ml @ 100 mls/hr DAILY@09 IV 03/14/24 09:00 03/14/24 08:02 100 MLS/HR Pantoprazole Sodium 40 mg BID IV 03/13/24 22:00 03/14/24 08:02 40 MG Sertraline HCl 100 mg HS PO 03/13/24 22:00 03/13/24 21:13 100 MG Amlodipine Besylate 10 mg DAILY PO 03/14/24 10:00 Zolpidem Tartrate 10 mg HSPRN PRN PO 03/14/24 08:45 Atorvastatin Calcium 40 mg HS PO 03/14/24 22:00 Levothyroxine Sodium 137 mcg QAM@0600 PO 03/15/24 06:00 Laboratory Results Laboratory Tests 03/12/24 05:12 03/14/24 05:04 Chemistry Test 03/14/24 05:04 Albumin 4.3 g/dL (3.2-4.8) Calcium Level 9.5 mg/dL (8.7-10.4) Total Protein 7.1 g/dL (5.7-8.2) LFT Test 03/14/24 05:04 Alanine Aminotransferase (ALT) 17 U/L (7-40) Alkaline Phosphatase 93 U/L (46-116) Aspartate Amino Transferase (AST) 13 U/L (13-40) Total Bilirubin 0.3 mg/dL (0.2-1.0) Urinalysis Test 03/11/24 11:05 Urine Color Yellow (Yellow) Urine Clarity Ex.turbid (Clear) Urine pH 5.5 (5.0-9.0) Urine Specific [place] 1.011 (1.001-1.035) Urine Protein 2+ (Negative) H Urine Ketones Negative (Negative) Urine Blood 1+ /uL (Negative) H Urine Nitrite Negative (Negative) Urine Bilirubin Negative (Negative) Urine Urobilinogen Normal mg/dL (Negative) Urine Leukocyte Esterase 3+ /uL (Negative) Urine RBC 13 /hpf (0 - 3) Urine WBC 1876 /hpf (0 - 3) Urine WBC Clumps Present /hpf (None Seen) Urine Squamous Epithelial Cells None seen /hpf (<5) Urine Bacteria None seen /hpf (None Seen) Urine Glucose Normal mg/dL (Normal) Microbiology Microbiology Date/Time Source Procedure Growth Status 03/12/24 02:19 Nose MRSA Screen - Final Complete 03/11/24 14:22 Blood Blood Culture - Preliminary NO GROWTH AFTER 48 HOURS OF INCUBATION. Resulted 03/11/24 11:05 Urine - Catheterized Urine Culture - Final Citrobacter koseri Complete Assessment/Plan Assessment/Plan Sepsis secondary to acute urinary tract infection WBC 22 K: Blood cultures negative Urine cultures growing Citrobacter: Continue Rocephin BPH: Urology consult by Dr. Brayden mi, recommended indwelling Stearns catheterization until patient's gets TURP, was previously advised by [place] urologist for TURP, but patient refused Neurogenic bladder Chronic kidney disease Status post colectomy and ileostomy Diabetes: Insulin sliding scale Insomnia: Ambien Hypertension: Amlodipine Hypothyroid: Synthroid Recurrent UTI Time spent 55 minutes Patient is full code Condition guarded Advanced care planning time 20 minutes Plan discussed with: Patient My Orders Orders - JENNIFER AVITIA MD Procedure Category Date Status Time Ceftriaxone 1gm/50ml PHA 03/14/24 In Process D5w (Rocephin) 09:00 Pantoprazole PHA 03/13/24 In Process (Protonix) 22:00 Sertraline Hcl PHA 03/13/24 In Process (Zoloft) 22:00 Amlodipine Tablet PHA 03/14/24 In Process (Norvasc Tablet) 10:00 Zolpidem Tartrate PHA 03/14/24 In Process (Ambien) 08:45 Atorvastatin (Lipitor) PHA 03/14/24 In Process 22:00 Levothyroxine Tablet PHA 03/15/24 In Process (Synthroid Tablet) 06:00 Date of Service: Mar 14, 2024 Billing Provider: JENNIFER AVITIA MD Common Visit Codes: [id number] INP/OBS CARE(HIGH) JENNIFER AVITIA MD Mar 14, 2024 09:21
[2024-03-14] MEDS: amLODIPine BESYLATE 5 MG TAB PO SCH (11:35)
[2024-03-14] MEDS: LEVOTHYROXINE SODIUM 25 MCG TAB PO ONE (11:37)
--- NOTE | 2024-03-14 16:05 | DVH ---
ULTRASOUND OF SCROTUM AND CONTENTS. INDICATION: Right testicular swelling and tenderness ruled out torsion COMPARISON: None TECHNIQUE: Multiple real-time grayscale sonographic and color and duplex Doppler images of the scrotu m and its contents were obtained. FINDINGS: The right testicle measures 5 cm. 4mm right epididymal cyst. The left testicle measures 5 cm. Both testicles demonstrate homogeneous echotexture without evidence of focal lesions. The right epididymal head measures 1.8 cm. The left epididymal head measures 1.1 cm. Subsequent color and duplex Doppler interrogation of the testes demonstrated symmetric normal vascula r flow to both testicles. No focal areas of hyperemia were seen. IMPRESSION: 1. No evidence of torsion, epididymitis, and/or orchitis. 2. Small bilateral hydroceles.
[2024-03-14] MEDS: ATORVASTATIN 20 MG TAB PO SCH (21:30)
[2024-03-14] MEDS: ZOLPIDEM TARTRATE 5 MG TAB PO PRN (23:37)
[2024-03-15 01:00] VITALS: BP 136/83; PULSE 79; RESP 18; TEMP 97.9; O2SAT 95
[2024-03-15 05:00] VITALS: BP 138/65; PULSE 86; RESP 18; TEMP 98; O2SAT 90
[2024-03-15] MEDS ORDERED: LEVOTHYROXINE SODIUM 25 MCG TAB PO SCH (06:00)
[2024-03-15 09:00] VITALS: BP 154/77; PULSE 78; RESP 18; TEMP 97.9; O2SAT 96
--- NOTE | 2024-03-15 09:14 | DVHPN2 ---
Reviewed: Care Plan, H&P, Labs, Medications, Previous Orders, Radiology Changes from previous H/P or p: No Changes Eyes: No Pain, No Vision change, No Conjunctivae inflammation, No Eyelid inflammation, No Other, No Redness ENT: No Ear pain, No Ear discharge, No Nose pain, No Nose discharge, No Nose congestion, No Mouth pain, No Mouth swelling, No Throat pain, No Throat swelling, No Other Cardiovascular: No Chest Pain, No Palpitations, No Orthopnea, No Paroxysmal Noc. Dyspnea, No Edema, No Lt Headedness, No Other Respiratory: No Cough, No Dry, No Shortness of breath, No SOB with excertion, No Wheezing, No Hemoptysis, No Pleuritic Pain, No Sputum, No Other Gastrointestinal: No Nausea, No Vomiting, No Abdominal Pain, No Diarrhea, No Constipation, No Melena, No Hematochezia, No Other Genitourinary: No Dysuria, No Frequency; Incontinence; No Hematuria; Retention; No Other Musculoskeletal: No other, No neck pain, No shoulder pain, No arm pain, No back pain, No hand pain, No leg pain, No foot pain Skin: No Rash, No Lesions, No Jaundice, No Bruising, No Other Objective Vitals Vital Signs Date Time Temp Pulse Resp B/P (MAP) Pulse Ox O2 Delivery O2 Flow Rate FiO2 03/15/24 09:00 97.9 78 18 154/77 (102) 96 97.9 03/15/24 07:41 Room Air* 0 21 Intake/Output Intake and Output 03/15/24 07:00 Intake Total 2650 ml Output Total 4275 ml Balance -1625 ml Intake Oral 1400 ml IV Total 1250 ml Output Urine Total 4275 ml # Bowel Movements 3 Medications Current Medications Medications Dose Ordered Sig/Arnulfo Route Start Time Stop Time Status Last Admin Dose Admin Diagnostic Test (Pha) 1 strip IQ4HR 03/11/24 16:00 03/15/24 08:14 1 STRIP Insulin Human Regular IQ4HR SC 03/11/24 16:00 03/15/24 08:15 2 UNITS Dextrose 50 ml UD PRN IV 03/11/24 14:30 Sodium Chloride 1,000 ml @ 100 mls/hr Q10H IV 03/11/24 14:30 03/14/24 21:30 100 MLS/HR Lorazepam 0.5 mg Q6HP PRN PO 03/11/24 14:30 Al Hydrox/Mg Hydrox/Simethicone 30 ml Q6HP PRN PO 03/11/24 14:30 03/12/24 21:00 30 ML Docusate Sodium 100 mg BIDPRN PRN PO 03/11/24 14:30 Acetaminophen 650 mg Q6HP PRN PO 03/11/24 14:30 Acetaminophen/ Hydrocodone Bitart 1 tab Q4HP PRN PO 03/11/24 14:30 Ondansetron HCl 4 mg Q4HP PRN IV 03/11/24 14:30 Morphine Sulfate 1 mg Q4HPRN PRN IV 03/11/24 14:30 Ceftriaxone Sodium 50 ml @ 100 mls/hr DAILY@09 IV 03/14/24 09:00 03/15/24 08:19 100 MLS/HR Pantoprazole Sodium 40 mg BID IV 03/13/24 22:00 03/15/24 08:20 40 MG Sertraline HCl 100 mg HS PO 03/13/24 22:00 03/14/24 21:29 100 MG Amlodipine Besylate 10 mg DAILY PO 03/14/24 10:00 03/15/24 08:41 10 MG Zolpidem Tartrate 10 mg HSPRN PRN PO 03/14/24 08:45 03/14/24 23:37 10 MG Atorvastatin Calcium 40 mg HS PO 03/14/24 22:00 03/14/24 21:30 40 MG Levothyroxine Sodium 112 mcg QAM@0600 PO 03/14/24 06:00 03/15/24 06:00 112 MCG Levothyroxine Sodium 25 mcg QAM@0600 PO 03/14/24 06:00 03/15/24 06:00 25 MCG Laboratory Results Laboratory Tests 03/12/24 05:12 03/14/24 05:04 Urinalysis Test 03/11/24 11:05 Urine Color Yellow (Yellow) Urine Clarity Ex.turbid (Clear) Urine pH 5.5 (5.0-9.0) Urine Specific [place] 1.011 (1.001-1.035) Urine Protein 2+ (Negative) H Urine Ketones Negative (Negative) Urine Blood 1+ /uL (Negative) H Urine Nitrite Negative (Negative) Urine Bilirubin Negative (Negative) Urine Urobilinogen Normal mg/dL (Negative) Urine Leukocyte Esterase 3+ /uL (Negative) Urine RBC 13 /hpf (0 - 3) Urine WBC 1876 /hpf (0 - 3) Urine WBC Clumps Present /hpf (None Seen) Urine Squamous Epithelial Cells None seen /hpf (<5) Urine Bacteria None seen /hpf (None Seen) Urine Glucose Normal mg/dL (Normal) Microbiology Microbiology Date/Time Source Procedure Growth Status 03/12/24 02:19 Nose MRSA Screen - Final Complete 03/11/24 14:22 Blood Blood Culture - Preliminary NO GROWTH AFTER 72 HOURS OF INCUBATION. Resulted 03/11/24 11:05 Urine - Catheterized Urine Culture - Final Citrobacter koseri Complete Assessment/Plan Assessment/Plan Sepsis secondary to acute urinary tract infection WBC 22 K: Blood cultures negative Urine cultures growing Citrobacter: Continue Rocephin BPH: Urology consult by Dr. Brayden mi, recommended indwelling Stearns catheterization until patient's gets TURP, was previously advised by [place] urologist for TURP, but patient refused Neurogenic bladder Chronic kidney disease Status post colectomy and ileostomy Diabetes: Insulin sliding scale Insomnia: Ambien Mild cellulitis right scrotum: Testicular ultrasound negative for any torsion epididymitis orchitis doxycycline p.o. b.i.d. Hypertension: Amlodipine Hypothyroid: Synthroid Recurrent UTI Midline ordered, Patient will be discharged to senior living facility for Rocephin 1 g IV daily for three weeks for UTI Plan discussed with: Patient My Orders Orders - JENNIFER AVITIA MD Procedure Category Date Status Time Levothyroxine Tablet PHA 03/14/24 In Process (Synthroid Tablet) 06:00 Levothyroxine Tablet PHA 03/14/24 In Process (Synthroid Tablet) 06:00 Testicular Ultrasound US 03/14/24 Resulted 14:31 Date of Service: Mar 15, 2024 Billing Provider: JENNIFER AVITIA MD Common Visit Codes: [id number] INP/OBS CARE(HIGH) JENNIFER AVITIA MD Mar 15, 2024 09:14
--- NOTE | 2024-03-15 09:20 | DVHDS2 ---
Discharge Summary Date of Admission Mar 11, 2024 at 14:29 Date of Discharge: Mar 15, 2024 Admitting Diagnosis Generalized weakness and urinary retention Wounds: None Labs/Diagnostic Data: Laboratory Results Test 03/15/24 07:37 03/14/24 05:04 03/12/24 05:12 03/11/24 18:06 POC Glucose 155 mg/dl (70-106) Sodium Level 140 mmol/L (136-145) Potassium Level 3.4 mmol/L (3.5-5.1) Chloride Level 108 mmol/L (98-107) Carbon Dioxide Level 18 mmol/L (20-31) Anion Gap 14 (5-15) Blood Urea Nitrogen 17 mg/dL (9-23) Creatinine 1.43 mg/dL (0.700-1.30) Glomerular Filtration Rate Calc 52 mL/min (>90) BUN/Creatinine Ratio 11.9 (10.0-20.0) Serum Glucose 123 mg/dL (74-106) Calcium Level 9.5 mg/dL (8.7-10.4) Total Bilirubin 0.3 mg/dL (0.2-1.0) Aspartate Amino Transferase (AST) 13 U/L (13-40) Alanine Aminotransferase (ALT) 17 U/L (7-40) Alkaline Phosphatase 93 U/L (46-116) Total Protein 7.1 g/dL (5.7-8.2) Albumin 4.3 g/dL (3.2-4.8) White Blood Count 14.0 10^3/uL (4.4-10.8) Red Blood Count 5.00 10^6/uL (4.5-5.90) Hemoglobin 12.4 g/dL (13.5-17.5) Hematocrit 38.0 % (41.0-53.0) Mean Corpuscular Volume 76.0 fL (80.0-100.0) Mean Corpuscular Hemoglobin 24.8 pg (28.0-32.0) Mean Corpuscular Hemoglobin Concent 32.6 g/dL (32.0-36.0) Red Cell Distribution Width 16.0 % (11.8-14.3) Platelet Count 278 10^3/uL (140-450) Mean Platelet Volume 8.9 fL (6.9-10.8) Neutrophils (%) (Auto) 79.6 % (37.0-80.0) Lymphocytes (%) (Auto) 12.6 % (10.0-50.0) Monocytes (%) (Auto) 6.3 % (0.0-12.0) Eosinophils (%) (Auto) 1.3 % (0.0-7.0) Basophils (%) (Auto) 0.2 % (0.0-2.0) Neutrophils # (Auto) 11.1 10 ^3/uL (1.6-8.6) Lymphocytes # (Auto) 1.8 10 ^3/uL (0.4-5.4) Monocytes # (Auto) 0.9 10 ^3/uL (0-1.3) Eosinophils # (Auto) 0.2 10 ^3/uL (0-0.8) Basophils # (Auto) 0 10 ^3/uL (0-0.2) Nucleated Red Blood Cells 0.0 % Lactic Acid Level 0.8 mmol/L (0.4-2.0) Test 03/11/24 14:35 03/11/24 11:57 03/11/24 11:05 Blood Gas Specimen Type Arterial Blood Gas Sample Site Right radial Blood Gas Patient Temperature 37.0 Arterial Blood Date Drawn [id number] Arterial Blood pH 7.328 (7.350-7.450) Arterial Blood Partial Pressure CO2 28.3 mmHg (35.0-48.0) Arterial Blood Partial Pressure O2 77.5 mmHg (83.0-108.0) Arterial Blood HCO3 14.5 mmol/L (21.0-28.0) Arterial Blood Oxygen Saturation 94.6 % (94.0-98.0) Arterial Blood Base Excess -9.9 mmol/L (-2.0-3.0) Arterial Blood Oxyhemoglobin 93.4 % (94.0-98.0) Arterial Blood Carboxyhemoglobin 0.7 % (0.5-1.5) Arterial Blood Methemoglobin 0.6 % (0.0-1.5) Nishant Test Yes Blood Gas Total Hemoglobin 13.40 g/dL (13.5-17.5) Blood Gas Modality Room air FiO2 % 21.0 Troponin I High Sensitivity 8 ng/L (</=54) Urine Color Yellow (Yellow) Urine Clarity Ex.turbid (Clear) Urine pH 5.5 (5.0-9.0) Urine Specific [place] 1.011 (1.001-1.035) Urine Protein 2+ (Negative) Urine Ketones Negative (Negative) Urine Blood 1+ /uL (Negative) Urine Nitrite Negative (Negative) Urine Bilirubin Negative (Negative) Urine Urobilinogen Normal mg/dL (Negative) Urine Leukocyte Esterase 3+ /uL (Negative) Urine RBC 13 /hpf (0 - 3) Urine WBC 1876 /hpf (0 - 3) Urine WBC Clumps Present /hpf (None Seen) Urine Squamous Epithelial Cells None seen /hpf (<5) Urine Bacteria None seen /hpf (None Seen) Urine Glucose Normal mg/dL (Normal) Other Laboratory Tests 03/14/24 05:04 03/12/24 05:12 Brief Hx & Hospital Course: 74-year-old male with a history of diabetes BPH recurrent urinary tract infections refused TURP recommended by the [place] urologist history of hypertension hypothyroidism neurogenic bladder came in complaining of acute urinary retention generalized weakness found to have sepsis secondary to urinary tract infection with elevated white count of 22 K blood cultures negative urine cultures growing Citrobacter started on Rocephin complained of swelling and redness of the right scrotum testicular ultrasound negative for any torsion epididymitis orchitis patient has superficial cellulitis of the scrotum placed on doxycycline patient was seen by Urology Dr. Owen advised TURP by the [place] urologist but the patient does not want. Being [facility] to [facility] for [facility] and for IV antibiotics for three weeks Consults/Reason for consult Urology Dr. Owen Operations or Procedures CT abdomen pelvis without contrast Testicular ultrasound Condition at Discharge: Fair Final Diagnosis/Problems List Sepsis secondary to acute urinary tract infection WBC 22 K: Blood cultures negative Urine cultures growing Citrobacter: Continue Rocephin BPH: Urology consult by Dr. Owen appreciated, recommended indwelling Stearns catheterization until patient's gets TURP, was previously advised by [place] urologist for TURP, but patient refused Neurogenic bladder Chronic kidney disease Status post colectomy and ileostomy Diabetes: Insulin sliding scale Insomnia: Ambien Mild cellulitis right scrotum: Testicular ultrasound negative for any torsion epididymitis orchitis doxycycline p.o. b.i.d. Hypertension: Amlodipine Hypothyroid: Synthroid Recurrent UTI Midline ordered, Patient will be discharged to correction facility for Rocephin 1 g IV daily for three weeks for UTI Discharge Disposition: Jail Facility Discharge Instruct/Medications Diet: Cardiac 2g Na,low cholest Activity: Light activity Follow Up/Referral: Follow up with the snf Medications: Rocephin 1 g IV daily for three weeks for recurrent UTI 39 (Time taken for discharge summary 39 minutes) Discharge Statement: "Patient was advised to return to the ER or call 911 if any headaches, dizziness, shortness of breath, chest pain, abdominal pain, bleeding, fevers, or worsening of medical condition. Patient was counseled about treatment plan, medications, possible side effects, patientverbalized understanding. All questions were answered to the best of my ability. This discharge took greater then 30 minutes in planning, reviewing documentation, counseling the patient, and discussing with other team members." ASSESSMENT ASSESSMENT Hospital Course Improved Assessment Sepsis secondary to acute urinary tract infection WBC 22 K: Blood cultures negative Urine cultures growing Citrobacter: Continue Rocephin BPH: Urology consult by Dr. Brayden mi, recommended indwelling Stearns catheterization until patient's gets TURP, was previously advised by [place] urologist for TURP, but patient refused Neurogenic bladder Chronic kidney disease Status post colectomy and ileostomy Diabetes: Insulin sliding scale Insomnia: Ambien Mild cellulitis right scrotum: Testicular ultrasound negative for any torsion epididymitis orchitis doxycycline p.o. b.i.d. Hypertension: Amlodipine Hypothyroid: Synthroid Recurrent UTI Midline ordered, Patient will be discharged to correction facility for Rocephin 1 g IV daily for three weeks for UTI Date of Service: Mar 15, 2024 Billing Provider: JENNIFER AVITIA MD Common Visit Codes: [id number] DISCH DAY >30min JENNIFER AVITIA MD Mar 15, 2024 09:20
[2024-03-15] MEDS: DOXYCYCLINE 100 MG TAB/CAP PO SCH (11:33)
[2024-03-15 13:00] VITALS: BP 140/63; PULSE 74; RESP 17; TEMP 98.1; O2SAT 95
[2024-03-15 13:11] VITALS: BP 140/63; PULSE 74; RESP 18; TEMP 98.1; O2SAT 95
[2024-03-15 17:00] VITALS: BP 145/68; PULSE 77; RESP 18; TEMP 97.7; O2SAT 95
== END 2024-03-15 18:46 | DRG 872 ==
LOC: ER 10:52 → OVERFLOW 14:29 → CENTRAL 16:51
PROVIDERS: ADMIT Hospitalist; ATTEND Family Medicine
PROC: 05HB33Z Insertion of Infusion Device into Right Basilic Vein, Percutaneous Approach (ICD-10-PCS; principal; 2024-03-15)
PROC: B54MZZA Ultrasonography of Right Upper Extremity Veins, Guidance (ICD-10-PCS; 2024-03-15)
DX: A41.9 Sepsis, unspecified organism (principal); N17.9 Acute kidney failure, unspecified; N13.6 Pyonephrosis; R65.20 Severe sepsis without septic shock; E11.65 Type 2 diabetes mellitus with hyperglycemia; N18.9 Chronic kidney disease, unspecified; N40.0 Benign prostatic hyperplasia without lower urinary tract symptoms; E11.22 Type 2 diabetes mellitus with diabetic chronic kidney disease; N31.9 Neuromuscular dysfunction of bladder, unspecified; E03.9 Hypothyroidism, unspecified; I12.9 Hypertensive chronic kidney disease with stage 1 through stage 4 chronic kidney disease, or unspecified chronic kidney disease; G47.00 Insomnia, unspecified; N49.2 Inflammatory disorders of scrotum; I10 Essential (primary) hypertension; E66.9 Obesity, unspecified; Z93.3 Colostomy status; Z93.2 Ileostomy status; Z90.49 Acquired absence of other specified parts of digestive tract; Z82.5 Family history of asthma and other chronic lower respiratory diseases; Z68.34 Body mass index [BMI] 34.0-34.9, adult
CPT/HCPCS: 36415; 36600; 76870; 80048; 80053; 82805; 82962; 85025; 87081; 87088; 87186; 96365; 97163; 99291; G0378; J1815; J2470; J2543